=== PATIENT | male | born 1970 | race Hispanic/Latino ===

== ENCOUNTER → 2018-04-24 | Outpatient (CLI) | payer BC ==
[~2018-04-24] MED LIST: IOPAMIDOL 370 MG/ML 200 ML INFUS..BTL INJ ONE; SODIUM CHLORIDE 0.9% 50ML 50 ML ONE
--- NOTE | 2018-04-24 17:50 | Diagnostic Imaging Report ---
EXAMINATION: CT of the pelvis with contrast. TECHNIQUE: Spiral CT images of the pelvis were performed from the iliac crests to the lesser trochanters after the intravenous administration of 100 cc of Isovue 370 and the oral administration of water. Coronal and sagittal reformatted images were obtained. COMPARISON: None. CLINICAL HISTORY:Rectal pain, hemorrhoids for one week DISCUSSION: PELVIS: PELVIC ORGANS/BLADDER: Bladder is unremarkable. Mild prostatic enlargement. Seminal vesicles are unremarkable. PERITONEUM/RETROPERITONEUM: No free air or fluid. LYMPH NODES: No distal retroperitoneal, pelvic or inguinal adenopathy. VESSELS: Visualized vessels are patent and unremarkable. GI TRACT: No bowel dilation or evidence of obstruction. No wall thickening. Appendix is well identified and normal in caliber. Normal presacral space BONES AND SOFT TISSUE: No aggressive lytic lesions. Small fat-containing umbilical hernia. IMPRESSION: 1. No acute pelvic abnormalities. Bowel has an unremarkable appearance, without dilation, obstruction or wall thickening. Signed by: Dr. Bennie Grace M.D. on 04/24/2018 5:47 PM
== END ==
LOC: CT 15:33
PROVIDERS: ATTEND Internal Medicine Gastroenterology
DX: K62.89 Other specified diseases of anus and rectum (principal)
CPT/HCPCS: 72193; Q9967